=== PATIENT | male | born 1970 | race Two or more races ===

== ENCOUNTER 2017-02-08 21:34 | Inpatient (IN) | payer MEDICAID ==
[~2017-02-08] VITALS: Ht 180.3 cm; Wt 72.6 kg
[2017-02-08] MEDS ORDERED: Albuterol ud Inhalation ONE (21:43)
[2017-02-08] MEDS ORDERED: Ipratropium 0.02% Inh Soln 2.5ml UD ONE (21:43)
[2017-02-08] MEDS ORDERED: Solu-MEDROL 125mg Inj IVP ONE (21:45)
[2017-02-08] MEDS ORDERED: Ipratropium 0.02% Inh Soln 2.5ml UD HHN ONE (21:45)
[2017-02-08] MEDS ORDERED: Albuterol ud Inhalation HHN ONE (21:45)
[2017-02-08 22:14] LABS: BASOPHILS % (AUTO) 1.4 % (0.0-2.0); EOSINOPHILS % (AUTO) 2.3 % (0.0-3.0); LYMPHOCYTES % (AUTO) 36.3 % (20.0-45.0); MEAN CORPUSCULAR HEMOGLOBIN 24.4 PG (27.0-31.0); MEAN CORPUSCULAR HGB CONC 28.4 G/DL (32.0-36.0); MEAN CORPUSCULAR VOLUME 86 FL (80-99); MONOCYTES % (AUTO) 10.8 % (1.0-10.0); NEUTROPHILS % (AUTO) 49.2 % (45.0-75.0); PLATELET COUNT 249 K/UL (150-450); RED BLOOD COUNT 4.12 M/UL (4.70-6.10); RED CELL DISTRIBUTION WIDTH 19.8 % (11.6-14.8); WHITE BLOOD COUNT 5.6 K/UL (4.8-10.8)
[2017-02-08 22:28] LABS: PROTHROMBIN TIME 10.2 SEC (9.30-11.50)
[2017-02-08 22:34] LABS: APPEARANCE,URINE CLEAR; KETONES,URINE NEGATIVE (NEGATIVE); LEUKOCYTE ESTERASE ,URINE NEGATIVE (NEGATIVE); NITRITE,URINE NEGATIVE (NEGATIVE); PH,URINE 6 (4.5-8.0); PROTEIN,URINE 2+ (NEGATIVE); UROBILINOGEN,URINE NORMAL MG/DL (0.0-1.0)
[2017-02-08 22:42] LABS: ALANINE AMINOTRANSFERASE 55 U/L (12-78); ALBUMIN/GLOBULIN RATIO 0.8 (1.0-2.7); ANION GAP 8 mmol/L (5-15); ASPARTATE AMINO TRANSFERASE 46 U/L (15-37); CALCIUM 8.1 MG/DL (8.5-10.1); CARBON DIOXIDE 24 MMOL/L (21-32); CHLORIDE 111 MMOL/L (98-107); CKMB 3.4 NG/ML (0.0-3.6); CREATININE 1.5 MG/DL (0.55-1.30); GLOMERULAR FILTRATION RATE 50.4 mL/min (>60); POTASSIUM 3.9 MMOL/L (3.5-5.1); SODIUM 143 MMOL/L (136-145); TOTAL PROTEIN 6.4 G/DL (6.4-8.2)
[2017-02-08 22:43] VITALS: BP 158/108
[2017-02-08 22:45] LABS: BACTERIA,URINE FEW /HPF; RBC,URINE 0-2 /HPF (0 - 0); WBC,URINE 0-2 /HPF (0 - 0)
[2017-02-08] MEDS ORDERED: FUROSEMIDE40 MG ORAL (23:01)
[2017-02-09] VITALS (8 sets, daily range): BP systolic 120–145; BP diastolic 75–100
[2017-02-09] MEDS ORDERED: Enalaprilat 2.5mg/2ml Inj IV ONE
--- NOTE | 2017-02-09 00:01 | Emergency Room Report ---
History of Present Illness General Chief Complaint: Dyspnea/Respdistress Source: Patient, EMS Present Illness HPI This is a 46 year male with a history of chronic CHF, asthma and high blood pressure. He is staying at a motel nearby. He called 911 because he was short of breath. He said that he did not get his medication filled because the taxi never came. He was just a minute or 2 weeks ago at [facility] for the same thing. Pain 2 weeks prior to that he was at [facility]. He said he became short of breath tonight. Worse with exertion. No fever chills. Also has chest pain and chest pressure. EMS said he was wheezing so they gave him breathing treatment. Also gave him aspirin and nitroglycerin. He said he felt a bit better now. Similar symptom in the past. Allergies: Coded Allergies: No Known Allergies (Unverified , 02/08/17) Patient History Past Medical History: see triage record, old chart reviewed, HTN, CHF, asthma, HIV Past Surgical History: other Pertinent Family History: none Social History: Reports: smoking, Denies: alcohol use, drug use Immunizations: other Reviewed Nursing Documentation: PMH: Agreed, PSxH: Agreed Nursing Documentation-PMH Hx Hypertension: Yes Review of Systems Eye: Denies: eye pain, blurred vision ENT: Denies: ear pain, nose congestion, throat swelling Respiratory: Reports: shortness of breath, CONTRERAS, Denies: cough Cardiovascular: Reports: chest pain, Denies: palpitations Gastrointestinal: Denies: abdominal pain, diarrhea, nausea, vomiting Musculoskeletal: Denies: back pain, joint pain Skin: Denies: rash Neurological: Denies: headache, numbness Endocrine: Denies: increased thirst, increased urine Hematologic/Lymphatic: Denies: easy bruising All Other Systems: negative except mentioned in HPI Physical Exam Vital Signs Date Time Temp Pulse Resp B/P (MAP) Pulse Ox O2 Delivery O2 Flow Rate FiO2 02/08/17 21:30 97.3 107 18 154/106 98 02/08/17 21:35 Nasal Cannula 2.0 02/08/17 21:48 28 vitals with tachycardia, high blood pressure Sp02 EP Interpretation: abnormal General Appearance: moderate distress Head: normocephalic, atraumatic Eyes: bilateral eye PERRL, bilateral eye EOMI ENT: hearing grossly normal, normal pharynx Neck: full range of motion, supple, no meningismus Respiratory: chest non-tender, rales Cardiovascular #1: regular rate, rhythm, no murmur, tachycardia Gastrointestinal: normal bowel sounds, non tender, no mass, no organomegaly, no bruit, non-distended Musculoskeletal: back normal, normal range of motion Neurologic: alert, oriented x3 Psychiatric: mood/affect normal Skin: warm/dry Procedures Critical Care Time Critical Care Time Critical care is mandated in this patient who presented with respiratory distress secondary to CHF. Patient require my urgent intervention to attenuate the risks of metabolic collapse which may lead to cardiovascular collapse and . Critical care time is 35 minutes excluding any reportable procedure. Critical care time included evaluation, multiple reevaluation, looking at old charts, interpreting laboratory and diagnostic data, discussing case with patient and family and consultants, and charting. Medical Decision Making Diagnostic Impression: Primary Impression: CHF exacerbation Qualified Codes: I50.9 - Heart failure, unspecified Additional Impressions: ACS (acute coronary syndrome) Cocaine abuse Anemia Qualified Codes: D64.9 - Anemia, unspecified Respiratory distress Proteinuria Qualified Codes: R80.9 - Proteinuria, unspecified Renal insufficiency Cardiomyopathy Qualified Codes: I42.7 - Cardiomyopathy due to drug and external agent Asthma with exacerbation Qualified Codes: J45.901 - Unspecified asthma with (acute) exacerbation ER Course This patient presents with respiratory distress secondary to combination of CHF and asthma. This is probably secondary to smoking cocaine. He admits to it after positive drug screen. He diuresed about 2 L. He received aspirin and nitroglycerin by EMS her ready. I gave him a dose of Vasotec here. He also received them a CT been and steroid. He felt better now. Sleeping comfortably. Heart rate improved. Will admit. I discussed the case with Dr. Townsend. His troponin is in the intermediate zone. This may be secondary to early ACS versus troponin leak. Laboratory Tests Test 02/08/17 21:55 02/08/17 22:20 White Blood Count 5.6 K/UL (4.8-10.8) Red Blood Count 4.12 M/UL (4.70-6.10) L Hemoglobin 10.1 G/DL (14.2-18.0) L Hematocrit 35.4 % (42.0-52.0) L Mean Corpuscular Volume 86 FL (80-99) Mean Corpuscular Hemoglobin 24.4 PG (27.0-31.0) L Mean Corpuscular Hemoglobin Concent 28.4 G/DL (32.0-36.0) L Red Cell Distribution Width 19.8 % (11.6-14.8) H Platelet Count 249 K/UL (150-450) Mean Platelet Volume 6.0 FL (6.5-10.1) L Neutrophils (%) (Auto) 49.2 % (45.0-75.0) Lymphocytes (%) (Auto) 36.3 % (20.0-45.0) Monocytes (%) (Auto) 10.8 % (1.0-10.0) H Eosinophils (%) (Auto) 2.3 % (0.0-3.0) Basophils (%) (Auto) 1.4 % (0.0-2.0) Prothrombin Time 10.2 SEC (9.30-11.50) Prothromb Time International Ratio 1.0 (0.9-1.1) Activated Partial Thromboplast Time 25 SEC (23-33) Sodium Level 143 MMOL/L (136-145) Potassium Level 3.9 MMOL/L (3.5-5.1) Chloride Level 111 MMOL/L (98-107) H Carbon Dioxide Level 24 MMOL/L (21-32) Anion Gap 8 mmol/L (5-15) Blood Urea Nitrogen 18 mg/dL (7-18) Creatinine 1.5 MG/DL (0.55-1.30) H Estimat Glomerular Filtration Rate 50.4 mL/min (>60) Glucose Level 96 MG/DL (74-106) Calcium Level 8.1 MG/DL (8.5-10.1) L Total Bilirubin 0.4 MG/DL (0.2-1.0) Aspartate Amino Transf (AST/SGOT) 46 U/L (15-37) H Alanine Aminotransferase (ALT/SGPT) 55 U/L (12-78) Alkaline Phosphatase 98 U/L (46-116) Total Creatine Kinase 63 U/L (26-308) Creatine Kinase MB 3.4 NG/ML (0.0-3.6) Creatine Kinase MB Relative Index 5.3 Troponin I 0.141 ng/mL (0.000-0.056) Pro-B-Type Natriuretic Peptide 45233 pg/mL (0-125) H Total Protein 6.4 G/DL (6.4-8.2) Albumin 2.8 G/DL (3.4-5.0) L Globulin 3.6 g/dL Albumin/Globulin Ratio 0.8 (1.0-2.7) L Urine Color Pale yellow Urine Appearance Clear Urine pH 6 (4.5-8.0) Urine Specific [place] 1.010 (1.005-1.035) Urine Protein 2+ (NEGATIVE) H Urine Glucose (UA) Negative (NEGATIVE) Urine Ketones Negative (NEGATIVE) Urine Occult Blood Negative (NEGATIVE) Urine Nitrite Negative (NEGATIVE) Urine Bilirubin Negative (NEGATIVE) Urine Urobilinogen Normal MG/DL (0.0-1.0) Urine Leukocyte Esterase Negative (NEGATIVE) Urine RBC 0-2 /HPF (0 - 0) H Urine WBC 0-2 /HPF (0 - 0) Urine Squamous Epithelial Cells None /LPF (NONE/OCC) Urine Bacteria Few /HPF (NONE) Urine Opiates Screen Negative (NEGATIVE) Urine Barbiturates Screen Negative (NEGATIVE) Phencyclidine (PCP) Screen Negative (NEGATIVE) Urine Amphetamines Screen Negative (NEGATIVE) Urine Benzodiazepines Screen Negative (NEGATIVE) Urine Cocaine Screen Positive (NEGATIVE) H Urine Marijuana (THC) Screen Negative (NEGATIVE) Lab Results Impression labs with elevated BNP EKG Diagnostic Results Rate: tachycardiac Rhythm: NSR ST Segments: other - NSST changes Rhythm Strip Diag. Results Rhythm Strip Time: 23:59 EP Interpretation: yes Rate: 100 Rhythm: NSR, no PVC's, no ectopy Chest X-Ray Diagnostic Results Chest X-Ray Diagnostic Results : Chest X-Ray Ordered: Yes # of Views/Limited/Complete: 1 View Indication: Shortness of Breath EP Interpretation: Yes Interpretation: no consolidation, no effusion, no pneumothorax, other - CM with vasc congestion Impression: Other - CM with chf Last Vital Signs Date Time Temp Pulse Resp B/P (MAP) Pulse Ox O2 Delivery O2 Flow Rate FiO2 02/08/17 22:43 97.8 106 24 158/108 100 Nasal Cannula 2.0 02/08/17 22:07 28 Status: improved Disposition: ADMITTED INPATIENT Condition: Serious Referrals: NON PHYSICIAN (PCP) SHANTE SAHU M.D. Feb 09, 2017 00:01
[2017-02-09] MEDS ORDERED: Miralax 17gm pkt ORAL PRN (00:30)
[2017-02-09] MEDS ORDERED: Albuterol/Ipratropium 3ml neb HHN PRN (00:30)
--- NOTE | 2017-02-09 08:53 | Cardiology Progress Note ---
Assessment/Plan Assessment/Plan The patient is seen and examined, full consult note will be dictated shortly. Objective Last 24 Hour Vital Signs Date Time Temp Pulse Resp B/P (MAP) Pulse Ox O2 Delivery O2 Flow Rate FiO2 02/09/17 07:40 96.4 96 18 145/100 99 Room Air 02/09/17 07:30 98.3 98 19 137/98 98 Room Air 02/09/17 06:20 100 19 137/98 98 Room Air 02/09/17 04:48 102 21 133/93 97 Room Air 02/09/17 03:24 97 22 133/91 100 Room Air 02/09/17 01:15 98.3 106 20 126/92 100 Room Air 02/08/17 23:58 147/107 02/08/17 22:43 97.8 106 24 158/108 100 Nasal Cannula 2.0 02/08/17 22:07 114 20 100 Nasal Cannula 2.0 28 02/08/17 21:48 111 18 Nasal Cannula 2.0 28 02/08/17 21:48 111 18 100 Nasal Cannula 2.0 28 02/08/17 21:48 28 02/08/17 21:35 107 18 Nasal Cannula 2.0 02/08/17 21:30 97.3 107 18 154/106 98 Laboratory Tests Test 02/08/17 21:55 02/08/17 22:20 02/09/17 01:21 White Blood Count 5.6 K/UL (4.8-10.8) Red Blood Count 4.12 M/UL (4.70-6.10) L Hemoglobin 10.1 G/DL (14.2-18.0) L Hematocrit 35.4 % (42.0-52.0) L Mean Corpuscular Volume 86 FL (80-99) Mean Corpuscular Hemoglobin 24.4 PG (27.0-31.0) L Mean Corpuscular Hemoglobin Concent 28.4 G/DL (32.0-36.0) L Red Cell Distribution Width 19.8 % (11.6-14.8) H Platelet Count 249 K/UL (150-450) Mean Platelet Volume 6.0 FL (6.5-10.1) L Neutrophils (%) (Auto) 49.2 % (45.0-75.0) Lymphocytes (%) (Auto) 36.3 % (20.0-45.0) Monocytes (%) (Auto) 10.8 % (1.0-10.0) H Eosinophils (%) (Auto) 2.3 % (0.0-3.0) Basophils (%) (Auto) 1.4 % (0.0-2.0) Prothrombin Time 10.2 SEC (9.30-11.50) Prothromb Time International Ratio 1.0 (0.9-1.1) Activated Partial Thromboplast Time 25 SEC (23-33) Sodium Level 143 MMOL/L (136-145) Potassium Level 3.9 MMOL/L (3.5-5.1) Chloride Level 111 MMOL/L (98-107) H Carbon Dioxide Level 24 MMOL/L (21-32) Anion Gap 8 mmol/L (5-15) Blood Urea Nitrogen 18 mg/dL (7-18) Creatinine 1.5 MG/DL (0.55-1.30) H Estimat Glomerular Filtration Rate 50.4 mL/min (>60) Glucose Level 96 MG/DL (74-106) Calcium Level 8.1 MG/DL (8.5-10.1) L Total Bilirubin 0.4 MG/DL (0.2-1.0) Aspartate Amino Transf (AST/SGOT) 46 U/L (15-37) H Alanine Aminotransferase (ALT/SGPT) 55 U/L (12-78) Alkaline Phosphatase 98 U/L (46-116) Total Creatine Kinase 63 U/L (26-308) Creatine Kinase MB 3.4 NG/ML (0.0-3.6) Creatine Kinase MB Relative Index 5.3 Troponin I 0.141 ng/mL (0.000-0.056) 0.144 ng/mL (0.000-0.056) Pro-B-Type Natriuretic Peptide 79892 pg/mL (0-125) H Total Protein 6.4 G/DL (6.4-8.2) Albumin 2.8 G/DL (3.4-5.0) L Globulin 3.6 g/dL Albumin/Globulin Ratio 0.8 (1.0-2.7) L Urine Color Pale yellow Urine Appearance Clear Urine pH 6 (4.5-8.0) Urine Specific [place] 1.010 (1.005-1.035) Urine Protein 2+ (NEGATIVE) H Urine Glucose (UA) Negative (NEGATIVE) Urine Ketones Negative (NEGATIVE) Urine Occult Blood Negative (NEGATIVE) Urine Nitrite Negative (NEGATIVE) Urine Bilirubin Negative (NEGATIVE) Urine Urobilinogen Normal MG/DL (0.0-1.0) Urine Leukocyte Esterase Negative (NEGATIVE) Urine RBC 0-2 /HPF (0 - 0) H Urine WBC 0-2 /HPF (0 - 0) Urine Squamous Epithelial Cells None /LPF (NONE/OCC) Urine Bacteria Few /HPF (NONE) Urine Opiates Screen Negative (NEGATIVE) Urine Barbiturates Screen Negative (NEGATIVE) Phencyclidine (PCP) Screen Negative (NEGATIVE) Urine Amphetamines Screen Negative (NEGATIVE) Urine Benzodiazepines Screen Negative (NEGATIVE) Urine Cocaine Screen Positive (NEGATIVE) H Urine Marijuana (THC) Screen Negative (NEGATIVE) MARIA L BLANCA Feb 09, 2017 08:52
[2017-02-09] MEDS: Heparin 5000 units/ml inj SUBQ SCH ×2 (09:00→21:00)
--- NOTE | 2017-02-09 09:56 | Diagnostic Imaging Report ---
Indication: SOB Technique: One view of the chest Comparison: none Findings: Heart is enlarged. There is a small left pleural effusion. There is bilateral interstitial congestive change Impression: Cardiomegaly Mild interstitial congestion Small left pleural effusion
[2017-02-09] MEDS: Spironolactone 25mg tab ORAL SCH (10:21)
--- NOTE | 2017-02-09 11:04 | History and Physical ---
History of Present Illness General Date patient seen: Feb 09, 2017 Reason for Hospitalization: Dyspnea/Respdistress Present Illness HPI 46 year male with a history of chronic CHF, asthma and high blood pressure. He called 911 because he was short of breath. He said that he did not get his medication filled. He said he became short of breath tonight. Worse with exertion. No fever chills. Also has chest pain and chest pressure. EMS said he was wheezing so they gave him breathing treatment. Also gave him aspirin and nitroglycerin. He admits to using cocaine which was present in his urine. Allergies: Coded Allergies: No Known Allergies (Unverified , 02/08/17) Medication History Scheduled Furosemide* (Lasix*), 40 MG ORAL DAILY, (Reported) Patient History Healthcare decision maker Resuscitation status Full Code Advanced Directive on File Past Medical/Surgical History Past Medical/Surgical History: (1) History of asthma (2) Cocaine abuse Review of Systems Constitutional: Reports: no symptoms Eye: Reports: no symptoms Respiratory: Reports: no symptoms Cardiovascular: Reports: no symptoms Gastrointestinal: Reports: no symptoms Genitourinary: Reports: no symptoms Physical Exam General Appearance: WD/WN Lines, tubes and drains: peripheral HEENT: normocephalic, atraumatic Neck: non-tender, normal alignment Respiratory/Chest: chest wall non-tender, normal breath sounds Breasts: no masses Cardiovascular/Chest: normal rate Abdomen: normal bowel sounds, no organomegaly Genitourinary/Rectal: normal genital exam, normal rectal exam Last 24 Hour Vital Signs Date Time Temp Pulse Resp B/P (MAP) Pulse Ox O2 Delivery O2 Flow Rate FiO2 02/09/17 10:21 145/100 02/09/17 10:21 96 145/100 02/09/17 07:45 99 02/09/17 07:40 96.4 96 18 145/100 99 Room Air 02/09/17 07:30 98.3 98 19 137/98 98 Room Air 02/09/17 06:20 100 19 137/98 98 Room Air 02/09/17 04:48 102 21 133/93 97 Room Air 02/09/17 03:24 97 22 133/91 100 Room Air 02/09/17 01:15 98.3 106 20 126/92 100 Room Air 02/08/17 23:58 147/107 02/08/17 22:43 97.8 106 24 158/108 100 Nasal Cannula 2.0 02/08/17 22:07 114 20 100 Nasal Cannula 2.0 28 02/08/17 21:48 111 18 Nasal Cannula 2.0 28 02/08/17 21:48 111 18 100 Nasal Cannula 2.0 28 02/08/17 21:48 28 02/08/17 21:35 107 18 Nasal Cannula 2.0 02/08/17 21:30 97.3 107 18 154/106 98 Laboratory Tests Test 02/08/17 21:55 02/08/17 22:20 02/09/17 01:21 White Blood Count 5.6 K/UL (4.8-10.8) Red Blood Count 4.12 M/UL (4.70-6.10) L Hemoglobin 10.1 G/DL (14.2-18.0) L Hematocrit 35.4 % (42.0-52.0) L Mean Corpuscular Volume 86 FL (80-99) Mean Corpuscular Hemoglobin 24.4 PG (27.0-31.0) L Mean Corpuscular Hemoglobin Concent 28.4 G/DL (32.0-36.0) L Red Cell Distribution Width 19.8 % (11.6-14.8) H Platelet Count 249 K/UL (150-450) Mean Platelet Volume 6.0 FL (6.5-10.1) L Neutrophils (%) (Auto) 49.2 % (45.0-75.0) Lymphocytes (%) (Auto) 36.3 % (20.0-45.0) Monocytes (%) (Auto) 10.8 % (1.0-10.0) H Eosinophils (%) (Auto) 2.3 % (0.0-3.0) Basophils (%) (Auto) 1.4 % (0.0-2.0) Prothrombin Time 10.2 SEC (9.30-11.50) Prothromb Time International Ratio 1.0 (0.9-1.1) Activated Partial Thromboplast Time 25 SEC (23-33) Sodium Level 143 MMOL/L (136-145) Potassium Level 3.9 MMOL/L (3.5-5.1) Chloride Level 111 MMOL/L (98-107) H Carbon Dioxide Level 24 MMOL/L (21-32) Anion Gap 8 mmol/L (5-15) Blood Urea Nitrogen 18 mg/dL (7-18) Creatinine 1.5 MG/DL (0.55-1.30) H Estimat Glomerular Filtration Rate 50.4 mL/min (>60) Glucose Level 96 MG/DL (74-106) Calcium Level 8.1 MG/DL (8.5-10.1) L Total Bilirubin 0.4 MG/DL (0.2-1.0) Aspartate Amino Transf (AST/SGOT) 46 U/L (15-37) H Alanine Aminotransferase (ALT/SGPT) 55 U/L (12-78) Alkaline Phosphatase 98 U/L (46-116) Total Creatine Kinase 63 U/L (26-308) Creatine Kinase MB 3.4 NG/ML (0.0-3.6) Creatine Kinase MB Relative Index 5.3 Troponin I 0.141 ng/mL (0.000-0.056) 0.144 ng/mL (0.000-0.056) Pro-B-Type Natriuretic Peptide 19340 pg/mL (0-125) H Total Protein 6.4 G/DL (6.4-8.2) Albumin 2.8 G/DL (3.4-5.0) L Globulin 3.6 g/dL Albumin/Globulin Ratio 0.8 (1.0-2.7) L Urine Color Pale yellow Urine Appearance Clear Urine pH 6 (4.5-8.0) Urine Specific [place] 1.010 (1.005-1.035) Urine Protein 2+ (NEGATIVE) H Urine Glucose (UA) Negative (NEGATIVE) Urine Ketones Negative (NEGATIVE) Urine Occult Blood Negative (NEGATIVE) Urine Nitrite Negative (NEGATIVE) Urine Bilirubin Negative (NEGATIVE) Urine Urobilinogen Normal MG/DL (0.0-1.0) Urine Leukocyte Esterase Negative (NEGATIVE) Urine RBC 0-2 /HPF (0 - 0) H Urine WBC 0-2 /HPF (0 - 0) Urine Squamous Epithelial Cells None /LPF (NONE/OCC) Urine Bacteria Few /HPF (NONE) Urine Opiates Screen Negative (NEGATIVE) Urine Barbiturates Screen Negative (NEGATIVE) Phencyclidine (PCP) Screen Negative (NEGATIVE) Urine Amphetamines Screen Negative (NEGATIVE) Urine Benzodiazepines Screen Negative (NEGATIVE) Urine Cocaine Screen Positive (NEGATIVE) H Urine Marijuana (THC) Screen Negative (NEGATIVE) Height (Feet): 5 Height (Inches): 11.00 Weight (Pounds): 160 Medications Current Medications Medications (Trade) Dose Ordered Sig/Issa Route PRN Reason Start Time Stop Time Status Last Admin Dose Admin Acetaminophen (Tylenol) 650 mg Q4H PRN ORAL Fever 02/09/17 00:30 03/11/17 00:29 Albuterol/ Ipratropium (Albuterol/ Ipratropium) 3 ml Q4H PRN HHN Shortness of Breath 02/09/17 00:30 02/14/17 00:29 Carvedilol (Coreg) 3.125 mg EVERY 12 HOURS ORAL 02/09/17 10:00 03/11/17 09:59 02/09/17 10:21 Dextrose (Dextrose 50%) STAT PRN IV Hypoglycemia 02/09/17 00:30 03/11/17 00:29 Furosemide (Lasix) 40 mg EVERY 8 HOURS IV 02/09/17 06:00 03/11/17 05:59 02/09/17 06:02 Heparin Sodium (Porcine) (Heparin 5000 units/ml) 5,000 units EVERY 12 HOURS SUBQ 02/09/17 09:00 03/11/17 08:59 Isosorbide Dinitrate (Isordil) 10 mg QID ORAL 02/09/17 10:00 03/11/17 09:59 02/09/17 10:21 Ondansetron HCl (Zofran) 4 mg Q6H PRN IVP Nausea & Vomiting 02/09/17 00:30 03/11/17 00:29 Polyethylene Glycol (Miralax) 17 gm DAILYPRN PRN ORAL Constipation 02/09/17 00:30 03/11/17 00:29 Spironolactone (Aldactone) 25 mg DAILY ORAL 02/09/17 10:00 03/11/17 09:59 02/09/17 10:21 Temazepam (Restoril) 15 mg HSPRN PRN ORAL Insomnia 02/09/17 00:30 02/16/17 00:29 Assessment/Plan Problem List: (1) ACS (acute coronary syndrome) ICD Codes: I24.9 - Acute ischemic heart disease, unspecified SNOMED: 465220938 (2) Asthma with exacerbation ICD Codes: J45.901 - Unspecified asthma with (acute) exacerbation SNOMED: 547491301 Qualifiers: Qualified Codes: J45.901 - Unspecified asthma with (acute) exacerbation (3) Cardiomyopathy ICD Codes: I42.9 - Cardiomyopathy, unspecified SNOMED: 51844523, [id number] Qualifiers: Qualified Codes: I42.7 - Cardiomyopathy due to drug and external agent (4) Cocaine abuse ICD Codes: F14.10 - Cocaine abuse, uncomplicated SNOMED: 43881812 Assessment/Plan serial troponin echo cardiology evaluation social servCLARISA Bautista Feb 09, 2017 11:04
--- NOTE | 2017-02-09 13:22 | Cardiology Report ---
APPROVED REPORT EXAM: Two-dimensional and M-mode echocardiogram with Doppler and color Doppler. INDICATION Left ventricular function M-Mode DIMENSIONS IVSd1.2 (0.7-1.1cm)Left Atrium (MM)4.6 (1.6-4.0cm) LVDd5.9 (3.5-5.6cm)Aortic Root3.6 (2.0-3.7cm) PWd1.8 (0.7-1.1cm)Aortic Cusp Exc.2.2 (1.5-2.0cm) LVDs5.1 (2.5-4.0cm) PWs2.2 cm Mild left ventricular enlargement. Global LV hypokinesis. Left ventricular ejection fraction estimated to be 20-25 %. Increased E point-interventricular septal separation c/w left ventricular dysfunction. Mild left ventricular hypertrophy. Small posterior pericardial effusion. Mild bi-atrial enlargement. Mild mild ventricular enlargement. Mild focal aortic valve sclerosis with adequate cusp excursion. Mildly thickened mitral valve leaflets with normal excursion. Mild mitral annulus and aortic root calcification. Pulmonic valve not well visualized. Normal tricuspid valve structure. IVC at normal size with physiologic collapse. A color flow and spectral Doppler study was performed and revealed: No aortic regurgitation. Mild mitral regurgitation. Mitral inflow indicates restrictive pattern, implying severely elevated left atrial pressure (Grade III). Moderate tricuspid regurgitation. Tricuspid systolic velocities suggests peak right ventricular systolic pressure of 76 mmHg, consistent with severe pulmonary hypertension. No pulmonic regurgitation present.
[2017-02-09] MEDS: Digoxin 0.125mg tab ORAL SCH (18:10)
[2017-02-09] MEDS ORDERED: Flu Vaccine Quadrivalent 0.5ml IM ONE (21:00)
[2017-02-10] VITALS: BP 119/75
[2017-02-10 04:02] VITALS: BP 124/86
--- NOTE | 2017-02-10 05:16 | Consultation ---
DATE OF CONSULTATION: 02/09/2017 CARDIOLOGY CONSULTATION REFERRING PHYSICIAN: Rico Townesnd M.D. REASON FOR CONSULTATION: Management of acute heart failure. HISTORY OF PRESENT ILLNESS: The patient is a very unfortunate 46-year-old gentleman, who called 911 as he became short of breath. Apparently, he has history of chronic congestive heart failure and he ran out of medication as he did not fill his medication following his recent hospitalization in [facility]. He has had decompensated congestive heart failure in the past month requiring to hospitalize at [facility] followed by [facility] and this time he presents to [facility] for the same reason. Restates that he has dyspnea on exertion with minimal activities associated with the chest pain and wheezing. 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 At the time of arrival to the hospital, blood pressure was 154/106 mmHg and his heart rate was 107. He was admitted to telemetry for further evaluation and management. I was called by Dr. Townsend to evaluate and assist this patient in Cardiology consultation. Initial evaluation in the emergency department revealed presence of cocaine in the urine. A 12-lead electrocardiogram was significant for sinus rhythm, presence of LVH, left atrial enlargement, and repolarization abnormalities associated with LVH. His QT-interval was also elevated. He also had right atrial enlargement. There was no clear-cut evidence of ischemia. PAST MEDICAL HISTORY: 1. History of chronic systolic congestive heart failure. 2. History of asthma. 3. History of HIV disease. 4. History of hypertension. PAST SURGICAL HISTORY: None. MEDICATIONS: Lasix 40 mg daily. ALLERGIES: No known drug allergies. SOCIAL HISTORY: Denies any alcohol or tobacco. He has positive cocaine in his urine, as a cocaine user. FAMILY HISTORY: No premature coronary artery disease or arrhythmogenic in the first-degree relatives. REVIEW OF SYSTEMS: A 12-system review done essentially negative except what mentioned in the history of present illness. PHYSICAL EXAMINATION: GENERAL: The patient is a very unfortunate 46-year-old gentleman, in no apparent respiratory distress. Alert and oriented x4. VITAL SIGNS: Blood pressure was 150/106, respirations of 18, pulse 107, temperature 97.3 degrees Fahrenheit, and O2 saturation 98% on room air. HEENT: Atraumatic and normocephalic. Anicteric. Pupils are equal, round, and reactive to light and accommodation. Extraocular muscles intact. NECK: JVP elevated about 15 cm. No carotid bruits. Carotid upstrokes 2+ bilaterally. CARDIOVASCULAR: Normal S1 and S2. A 2/6 mid systolic murmur at left sternal border. PMI is at fourth intercostal space in the midclavicular line. There is presence of a summation gallop, S3 and S4 LUNGS: Diminished breath sounds in both lungs. ABDOMEN: Soft, nontender, and nondistended. No hepatosplenomegaly. Positive bowel sounds. EXTREMITIES: No evidence of edema, clubbing, or cyanosis. LABORATORY AND DIAGNOSTIC DATA: Chest x-ray showed cardiomegaly with mild interstitial edema and small left pleural effusion. Laboratory findings, WBC 5.6, hemoglobin 10.1, hematocrit of 35.4, and platelet count is 249,000. Sodium 143, potassium was 3.9, chloride 111, bicarbonate is 24, BUN of 18, creatinine 1.5, and glucose is 96. Calcium is 8.1. Troponin I x2 positive. ProBNP was 15,853. INR is 1.0. Toxicology showed positive cocaine in the urine. A 12-lead electrocardiogram shows sinus rhythm at a rate of 98 with left axis deviation, prolonged QT-interval, biatrial enlargement, LVH with repolarization abnormalities in lead V6, and nonspecific ST-T changes. ASSESSMENT AND PLAN: The patient is a very unfortunate 46-year-old gentleman seen in Cardiology consultation at request of Dr. Townsend. 1. Acute on chronic systolic and diastolic congestive heart failure, the patient requires to be on guideline directed medical therapy including beta-blockers, digoxin, Aldactone, REBECCA inhibitors as well as diuretic therapy. The patient moreover will benefit from warfarin therapy as his echocardiography report just came out to show left ventricular ejection fraction about 20% to 25%. 2. Polysubstance abuse. 3. Noncompliance with medication. I would like to thank, Dr. Townsend, for allowing me to participate in the care of this patient. Abdelrahman Hatch M.D. DR: JEREMIE JOB#: [id number] CC:
[2017-02-10 07:40] LABS: MEAN CORPUSCULAR HEMOGLOBIN 26.1 PG (27.0-31.0); MEAN CORPUSCULAR HGB CONC 31.7 G/DL (32.0-36.0); MEAN CORPUSCULAR VOLUME 82 FL (80-99); MEAN PLATELET VOLUME 6.9 FL (6.5-10.1); PLATELET COUNT 283 K/UL (150-450); RED BLOOD COUNT 4.69 M/UL (4.70-6.10); RED CELL DISTRIBUTION WIDTH 19.5 % (11.6-14.8); WHITE BLOOD COUNT 7.1 K/UL (4.8-10.8)
[2017-02-10 07:48] LABS: ANION GAP 5 mmol/L (5-15); CALCIUM 9.3 MG/DL (8.5-10.1); CARBON DIOXIDE 33 MMOL/L (21-32); CHLORIDE 101 MMOL/L (98-107); CREATININE 1.5 MG/DL (0.55-1.30); GLOMERULAR FILTRATION RATE 50.4 mL/min (>60); PHOSPHORUS 3.9 MG/DL (2.5-4.9); SODIUM 139 MMOL/L (136-145)
[2017-02-10 08:00] VITALS: BP 116/82
[2017-02-10 08:21] LABS: PROTHROMBIN TIME 10.4 SEC (9.30-11.50)
[2017-02-10 08:23] LABS: PATH BLOOD SMEAR/OMC SENT TO PATHOLOGIST
[2017-02-10 08:27] LABS: ALANINE AMINOTRANSFERASE 55 U/L (12-78); ALBUMIN/GLOBULIN RATIO 0.8 (1.0-2.7); ANION GAP 6 mmol/L (5-15); ASPARTATE AMINO TRANSFERASE 33 U/L (15-37); CALCIUM 9.2 MG/DL (8.5-10.1); CARBON DIOXIDE 33 MMOL/L (21-32); CHLORIDE 100 MMOL/L (98-107); CREATININE 1.5 MG/DL (0.55-1.30); GLOMERULAR FILTRATION RATE 50.4 mL/min (>60); LACTATE DEHYDROGENASE 233 U/L (81-234); POTASSIUM 4.1 MMOL/L (3.5-5.1); SODIUM 139 MMOL/L (136-145); TOTAL PROTEIN 7.1 G/DL (6.4-8.2)
[2017-02-10] MEDS: Digoxin 0.125mg tab ORAL SCH (08:53)
[2017-02-10 08:56] LABS: FOLIC ACID > 20.0 NG/ML (3.1-17.5)
[2017-02-10] MEDS: Spironolactone 25mg tab ORAL SCH (08:57)
[2017-02-10] MEDS: Heparin 5000 units/ml inj SUBQ SCH ×2 (08:58→21:54)
[2017-02-10 09:08] LABS: ERYTHROCYTE SEDIMENTATION RATE 15 MM/HR (0-15)
[2017-02-10 09:16] LABS: IRON 30 ug/dL (50-175); TOTAL IRON BINDING CAPACITY 317 ug/dL (250-450)
[2017-02-10 09:37] LABS: BAND NEUTROPHILS % (MANUAL) 1 % (0-8); EOSINOPHILS % (MANUAL) 1 % (0-3); LYMPHOCYTES % (MANUAL) 19 % (20-45); NEUTROPHILS % (MANUAL) 75 % (45-75); TOTAL CELLS COUNTED 100
[2017-02-10 09:38] LABS: BASOPHILS % (MANUAL) 0 % (0-2); PLATELET ESTIMATE ADEQUATE; PLATELET MORPHOLOGY NORMAL
[2017-02-10 09:40] LABS: ANISOCYTOSIS 3+
[2017-02-10 09:41] LABS: HYPOCHROMASIA 3+; POIKILOCYTOSIS 3+; STOMATOCYTES 1+
[2017-02-10 09:42] LABS: MICROCYTES 3+; TARGET CELLS 1+
[2017-02-10 09:44] LABS: MACROCYTES 1+
--- NOTE | 2017-02-10 10:24 | Diagnostic Imaging Report ---
Indication: DYSPNEA Technique: One view of the chest Comparison: none Findings: There has been interim improvement of previously demonstrated interstitial congestion, now resolved. Heart remains enlarged. Pleural spaces are clear, previously demonstrated left pleural effusion no longer evident Impression: Improved interstitial edema and left pleural fluid, over 2 days
[2017-02-10 12:00] VITALS: BP 123/68
--- NOTE | 2017-02-10 13:45 | Pulmonology Progress Note ---
Assessment/Plan Assessment/Plan ASSESSMENT atypical CP Elevated troponin CHF exacerbation , systolic and diastolic Cardiomyopathy ( EF 20-25%) Asthma cocaine abuse JUAN MIGUEL vs CRI Severe pulmonary HTN Anemia proteinuria hypo Mg PLAN OF CARE Tele serial troponin 2 elevated minimally, no trend up, flat Atypical pattern per cardio cardio follows ECG with ST/ SR,no acute ischemic changes ASA, Nitro/ on isordil Diuresis with IV Lasix, monitor I/O, renal parameters, lytes ECHO with EF 20-25% and RVSP of 78 c/ severe pulmonary HTN medical management of CHF with diuretic, BB won't recommend to add REBECCA at this time due to elevated creat - per cardio final discretion ? dc BB due to cocaine abuse ( tox screen positive ) per cardio O2 titrate to keep sat above 92% HHN prn Fup CXR better pain management DVT prophylaxis service counselor on abstinence from street drugs replace Mg case discussed and evaluated by supervising physician Subjective Allergies: Coded Allergies: No Known Allergies (Unverified , 02/08/17) Subjective no chest pain, occasional SOB on IV diuretic Mg-1.3 24 hr negative balance -4300 cc Objective Last 24 Hour Vital Signs Date Time Temp Pulse Resp B/P (MAP) Pulse Ox O2 Delivery O2 Flow Rate FiO2 02/10/17 12:00 91 02/10/17 08:55 116/82 02/10/17 08:53 97 02/10/17 08:52 97 116/82 02/10/17 08:00 83 02/10/17 07:55 85 20 Room Air 02/10/17 04:02 97.0 98 20 124/86 97 Room Air 2.0 28 02/10/17 03:50 81 02/10/17 00:00 99.1 107 20 119/75 95 Room Air 2.0 28 02/10/17 00:00 101 02/09/17 21:00 128/80 02/09/17 21:00 102 128/80 02/09/17 21:00 99 02/09/17 20:06 99.1 102 20 122/78 98 Room Air 2.0 28 02/09/17 19:50 105 20 Room Air 02/09/17 18:10 100 02/09/17 17:39 120/75 02/09/17 16:00 104 02/09/17 16:00 97.0 100 17 120/75 97 Room Air General Appearance: no acute distress HEENT: normocephalic, atraumatic, anicteric, mucous membranes moist, PERRL Respiratory/Chest: chest wall non-tender, lungs clear, normal breath sounds, no respiratory distress Cardiovascular: normal peripheral pulses, normal rate - SR on tele , murmur systolic - 2/6 midsystolic murmur Abdomen: normal bowel sounds, soft, non tender, non distended Extremities: no edema Neurologic/Psychiatric: no motor/sensory deficits, alert, oriented x 3, responsive Musculoskeletal: normal muscle bulk Laboratory Tests 02/10/17 06:40: White Blood Count 7.1, Red Blood Count 4.69L, Hemoglobin 12.3L, Hematocrit 38.6L , Mean Corpuscular Volume 82, Mean Corpuscular Hemoglobin 26.1L, Mean Corpuscular Hemoglobin Concent 31.7L, Red Cell Distribution Width 19.5H, Platelet Count 283, Mean Platelet Volume 6.9, Neutrophils (%) (Auto) , Lymphocytes (%) (Auto) , Monocytes (%) (Auto) , Eosinophils (%) (Auto) , Basophils (%) (Auto) , Differential Total Cells Counted 100, Neutrophils % ( Manual) 75, Lymphocytes % (Manual) 19L, Monocytes % (Manual) 4, Eosinophils % ( Manual) 1, Basophils % (Manual) 0, Band Neutrophils 1, Platelet Estimate Adequate, Platelet Morphology Normal, Hypochromasia 3+, Poikilocytosis 3+, Anisocytosis 3+, Microcytosis 3+, Macrocytosis 1+, Target Cells 1+, Stomatocytes 1+, Erythrocyte Sedimentation Rate 15, Reticulocyte Count 2.0, Prothrombin Time 10.4, Prothromb Time International Ratio 1.0, Activated Partial Thromboplast Time 24, Sodium Level 139, Potassium Level 4.1, Chloride Level 100, Carbon Dioxide Level 33H, Anion Gap 6, Blood Urea Nitrogen 29H, Creatinine 1.5H, Estimat Glomerular Filtration Rate 50.4, Glucose Level 101, Calcium Level 9.2, Phosphorus Level 3.9, Magnesium Level 1.3L, Iron Level 30L, Total Iron Binding Capacity 317, Percent Iron Saturation 9L, Unsaturated Iron Binding 287, Total Bilirubin 0.5, Aspartate Amino Transf (AST/SGOT) 33, Alanine Aminotransferase (ALT/SGPT) 55, Alkaline Phosphatase 92, Lactate Dehydrogenase 233, Troponin I 0.153H, Total Protein 7.1, Albumin 3.1L, Globulin 4.0, Albumin/ Globulin Ratio 0.8L, Vitamin B12 Level 440, Folate > 20.0H Current Medications Medications (Trade) Dose Ordered Sig/Issa Route PRN Reason Start Time Stop Time Status Last Admin Dose Admin Acetaminophen (Tylenol) 650 mg Q4H PRN ORAL Fever 02/09/17 00:30 03/11/17 00:29 Albuterol/ Ipratropium (Albuterol/ Ipratropium) 3 ml Q4H PRN HHN Shortness of Breath 02/09/17 00:30 02/14/17 00:29 Carvedilol (Coreg) 3.125 mg EVERY 12 HOURS ORAL 02/09/17 10:00 03/11/17 09:59 02/10/17 08:52 Dextrose (Dextrose 50%) STAT PRN IV Hypoglycemia 02/09/17 00:30 03/11/17 00:29 Digoxin (Lanoxin) 0.125 mg DAILY ORAL 02/09/17 18:00 03/11/17 17:59 02/10/17 08:53 Furosemide (Lasix) 40 mg EVERY 8 HOURS IV 02/09/17 06:00 03/11/17 05:59 02/10/17 05:58 Heparin Sodium (Porcine) (Heparin 5000 units/ml) 5,000 units EVERY 12 HOURS SUBQ 02/09/17 09:00 03/11/17 08:59 Isosorbide Dinitrate (Isordil) 10 mg QID ORAL 02/09/17 10:00 03/11/17 09:59 02/10/17 08:55 Ondansetron HCl (Zofran) 4 mg Q6H PRN IVP Nausea & Vomiting 02/09/17 00:30 03/11/17 00:29 Polyethylene Glycol (Miralax) 17 gm DAILYPRN PRN ORAL Constipation 02/09/17 00:30 03/11/17 00:29 Spironolactone (Aldactone) 25 mg DAILY ORAL 02/09/17 10:00 03/11/17 09:59 02/10/17 08:57 Temazepam (Restoril) 15 mg HSPRN PRN ORAL Insomnia 02/09/17 00:30 02/16/17 00:29 Y[facility] ([facility]),Deanne GUTIERRES Feb 10, 2017 13:45
[2017-02-10 16:40] VITALS: BP 109/76
--- NOTE | 2017-02-10 18:36 | Cardiology Progress Note ---
Assessment/Plan Status Narrative Assessment/Plan 1. Acute on chronic systolic and diastolic congestive heart failure, will optimize heart failure regimen. left ventricular ejection fraction is about 30%. 2. Severe pulmonary HTN 3. Small pericardial effusion is s/o right heart failure as well. 4. Polysubstance abuse. 5. Noncompliance with medication. Subjective Cardiovascular: Reports: no symptoms Respiratory: Reports: no symptoms Gastrointestinal/Abdominal: Reports: no symptoms Genitourinary: Reports: no symptoms Subjective Sinus tach at 102. Objective Last 24 Hour Vital Signs Date Time Temp Pulse Resp B/P (MAP) Pulse Ox O2 Delivery O2 Flow Rate FiO2 02/10/17 17:35 109/76 02/10/17 16:40 97.7 73 19 109/76 Room Air 02/10/17 16:00 77 02/10/17 13:47 123/68 02/10/17 12:00 97.1 83 18 123/68 100 Room Air 02/10/17 12:00 91 02/10/17 08:55 116/82 02/10/17 08:53 97 02/10/17 08:52 97 116/82 02/10/17 08:00 97.0 97 18 116/82 90 Room Air 97 02/10/17 08:00 83 02/10/17 07:55 85 20 Room Air 02/10/17 04:02 97.0 98 20 124/86 97 Room Air 2.0 28 02/10/17 03:50 81 02/10/17 00:00 99.1 107 20 119/75 95 Room Air 2.0 28 02/10/17 00:00 101 02/09/17 21:00 128/80 02/09/17 21:00 102 128/80 02/09/17 21:00 99 02/09/17 20:06 99.1 102 20 122/78 98 Room Air 2.0 28 02/09/17 19:50 105 20 Room Air 2D Echo: 4C DCM, LVEF 30%, Grade II LVDD, Mild MR, RVSP 76 , Mild LVH, Small Bhumika Ef Laboratory Tests Test 02/10/17 06:40 White Blood Count 7.1 K/UL (4.8-10.8) Red Blood Count 4.69 M/UL (4.70-6.10) L Hemoglobin 12.3 G/DL (14.2-18.0) L Hematocrit 38.6 % (42.0-52.0) L Mean Corpuscular Volume 82 FL (80-99) Mean Corpuscular Hemoglobin 26.1 PG (27.0-31.0) L Mean Corpuscular Hemoglobin Concent 31.7 G/DL (32.0-36.0) L Red Cell Distribution Width 19.5 % (11.6-14.8) H Platelet Count 283 K/UL (150-450) Mean Platelet Volume 6.9 FL (6.5-10.1) Neutrophils (%) (Auto) % (45.0-75.0) Lymphocytes (%) (Auto) % (20.0-45.0) Monocytes (%) (Auto) % (1.0-10.0) Eosinophils (%) (Auto) % (0.0-3.0) Basophils (%) (Auto) % (0.0-2.0) Differential Total Cells Counted 100 Neutrophils % (Manual) 75 % (45-75) Lymphocytes % (Manual) 19 % (20-45) L Monocytes % (Manual) 4 % (1-10) Eosinophils % (Manual) 1 % (0-3) Basophils % (Manual) 0 % (0-2) Band Neutrophils 1 % (0-8) Platelet Estimate Adequate Platelet Morphology Normal Hypochromasia 3+ Poikilocytosis 3+ Anisocytosis 3+ Microcytosis 3+ Macrocytosis 1+ Target Cells 1+ Stomatocytes 1+ Erythrocyte Sedimentation Rate 15 MM/HR (0-15) Reticulocyte Count 2.0 % (0.0-2.0) Prothrombin Time 10.4 SEC (9.30-11.50) Prothromb Time International Ratio 1.0 (0.9-1.1) Activated Partial Thromboplast Time 24 SEC (23-33) Sodium Level 139 MMOL/L (136-145) Potassium Level 4.1 MMOL/L (3.5-5.1) Chloride Level 100 MMOL/L (98-107) Carbon Dioxide Level 33 MMOL/L (21-32) H Anion Gap 6 mmol/L (5-15) Blood Urea Nitrogen 29 mg/dL (7-18) H Creatinine 1.5 MG/DL (0.55-1.30) H Estimat Glomerular Filtration Rate 50.4 mL/min (>60) Glucose Level 101 MG/DL (74-106) Calcium Level 9.2 MG/DL (8.5-10.1) Phosphorus Level 3.9 MG/DL (2.5-4.9) Magnesium Level 1.3 MG/DL (1.8-2.4) L Iron Level 30 ug/dL (50-175) L Total Iron Binding Capacity 317 ug/dL (250-450) Percent Iron Saturation 9 % (15-50) L Unsaturated Iron Binding 287 ug/dL (112-346) Total Bilirubin 0.5 MG/DL (0.2-1.0) Aspartate Amino Transf (AST/SGOT) 33 U/L (15-37) Alanine Aminotransferase (ALT/SGPT) 55 U/L (12-78) Alkaline Phosphatase 92 U/L (46-116) Lactate Dehydrogenase 233 U/L (81-234) Troponin I 0.153 ng/mL (0.000-0.056) Total Protein 7.1 G/DL (6.4-8.2) Albumin 3.1 G/DL (3.4-5.0) L Globulin 4.0 g/dL Albumin/Globulin Ratio 0.8 (1.0-2.7) L Vitamin B12 Level 440 PG/ML (193-986) Folate > 20.0 NG/ML (3.1-17.5) H Objective HEENT: Atraumatic and normocephalic. Anicteric. Pupils are equal, round, and reactive to light and accommodation. Extraocular muscles intact. NECK: JVP elevated about 15 cm. No carotid bruits. Carotid upstrokes 2+ bilaterally. CARDIOVASCULAR: Normal S1 and S2. Tachcyardic, A 2/6 mid systolic murmur at left sternal border. PMI is at fourth intercostal space in the midclavicular line. There is presence of a summation gallop, S3 and S4 LUNGS: Diminished breath sounds in both lungs. ABDOMEN: Soft, nontender, and nondistended. No hepatosplenomegaly. Positive bowel sounds. EXTREMITIES: No evidence of edema, clubbing, or cyanosis. MARIA L BLANCA Feb 10, 2017 18:36
[2017-02-10 20:22] VITALS: BP 107/64
[2017-02-11 00:54] VITALS: BP 131/64
[2017-02-11 04:33] VITALS: BP 126/72
[2017-02-11 07:29] LABS: BASOPHILS % (AUTO) 0.7 % (0.0-2.0); EOSINOPHILS % (AUTO) 2.6 % (0.0-3.0); LYMPHOCYTES % (AUTO) 25.4 % (20.0-45.0); MEAN CORPUSCULAR HGB CONC 31.8 G/DL (32.0-36.0); MEAN CORPUSCULAR VOLUME 82 FL (80-99); MEAN PLATELET VOLUME 7.3 FL (6.5-10.1); MONOCYTES % (AUTO) 9.4 % (1.0-10.0); NEUTROPHILS % (AUTO) 61.9 % (45.0-75.0); PLATELET COUNT 312 K/UL (150-450); RED BLOOD COUNT 5.07 M/UL (4.70-6.10); WHITE BLOOD COUNT 6.5 K/UL (4.8-10.8)
[2017-02-11 07:36] LABS: ANION GAP 6 mmol/L (5-15); CARBON DIOXIDE 30 MMOL/L (21-32); CHLORIDE 100 MMOL/L (98-107); CREATININE 1.2 MG/DL (0.55-1.30); GLOMERULAR FILTRATION RATE > 60 mL/min (>60); MAGNESIUM 1.8 MG/DL (1.8-2.4); POTASSIUM 4.3 MMOL/L (3.5-5.1); SODIUM 136 MMOL/L (136-145)
[2017-02-11 07:53] LABS: CALCIUM 9.1 MG/DL (8.5-10.1)
[2017-02-11 08:00] VITALS: BP 137/99
[2017-02-11] MEDS: Heparin 5000 units/ml inj SUBQ SCH ×2 (09:00→21:00)
[2017-02-11] MEDS: Digoxin 0.125mg tab ORAL SCH (09:07)
[2017-02-11] MEDS: Spironolactone 25mg tab ORAL SCH (09:08)
[2017-02-11] MEDS ORDERED: Tubing IV Secondary IV ONE (10:33)
[2017-02-11] MEDS ORDERED: NS 275ml ONE (10:33)
--- NOTE | 2017-02-11 11:41 | Pulmonology Progress Note ---
Assessment/Plan Assessment/Plan ASSESSMENT atypical CP Elevated troponin CHF exacerbation , systolic and diastolic Cardiomyopathy ( EF 20-25%) Asthma cocaine abuse JUAN MIGUEL -resolving Severe pulmonary HTN Anemia proteinuria hypo Mg-resolved PLAN OF CARE Tele serial troponin 2 elevated minimally, no trend up, flat Atypical pattern per cardio cardio follows ECG with ST/ SR,no acute ischemic changes ASA, Nitro/ on Isordil Diuresis with IV Lasix, monitor I/O, renal parameters, lytes , creat down to 1.2 ECHO with EF 20-25% and RVSP of 78 c/ w severe pulmonary HTN medical management of CHF with diuretic, BB won't recommend to add REBECCA at this time due to elevated creat - per cardio final discretion ? dc BB due to cocaine abuse ( tox screen positive ), again per cardio discretion ? AICD placement - per cardio O2 titrate to keep sat above 92% HHN prn Fup CXR better pain management DVT prophylaxis breastfeeding peer counselor on abstinence from street drugs Mg stable after replacement case discussed and evaluated by supervising physician Subjective Allergies: Coded Allergies: No Known Allergies (Unverified , 02/08/17) Subjective no chest pain, occasional SOB on IV diuretic Objective Last 24 Hour Vital Signs Date Time Temp Pulse Resp B/P (MAP) Pulse Ox O2 Delivery O2 Flow Rate FiO2 02/11/17 09:08 137/99 02/11/17 09:07 82 02/11/17 09:07 82 137/99 02/11/17 08:00 97.4 82 20 137/99 100 Room Air 02/11/17 08:00 105 02/11/17 07:24 81 18 Room Air 21 02/11/17 06:00 89 02/11/17 04:33 98.4 90 18 126/72 92 Room Air 02/11/17 00:54 97.7 92 18 131/64 99 Room Air 02/11/17 00:00 86 02/10/17 21:50 84 107/64 02/10/17 21:00 107/64 02/10/17 20:22 96.4 84 18 107/64 94 Room Air 02/10/17 19:30 82 20 Room Air 21 02/10/17 18:37 90 02/10/17 17:35 109/76 02/10/17 16:40 97.7 73 19 109/76 Room Air 02/10/17 13:47 123/68 02/10/17 12:00 97.1 83 18 123/68 100 Room Air 02/10/17 12:00 91 Objective General Appearance: no acute distress HEENT: normocephalic, atraumatic, anicteric, mucous membranes moist, PERRL Respiratory/Chest: chest wall non-tender, lungs clear, normal breath sounds, no respiratory distress Cardiovascular: normal peripheral pulses, normal rate - SR on tele, 2/6 mid systolic murmur Abdomen: normal bowel sounds, soft, non tender, non distended Extremities: no edema Neurologic/Psychiatric: no motor/sensory deficits, alert, oriented x 3, responsive Musculoskeletal: normal muscle bulk Microbiology Date/Time Source Procedure Growth Status 02/09/17 11:30 Nasal Nares MRSA Culture - Final NO METHICILLIN RESISTANT STAPH AUREUS... Complete 02/09/17 11:30 Rectum VRE Culture - Final NO VANCOMYCIN RESISTANT ENTEROCOCCUS ... Complete Laboratory Tests 02/11/17 05:00: White Blood Count 6.5, Red Blood Count 5.07, Hemoglobin 13.2L, Hematocrit 41.4L , Mean Corpuscular Volume 82, Mean Corpuscular Hemoglobin 26.0L, Mean Corpuscular Hemoglobin Concent 31.8L, Red Cell Distribution Width 19.0H, Platelet Count 312, Mean Platelet Volume 7.3, Neutrophils (%) (Auto) 61.9, Lymphocytes (%) (Auto) 25.4, Monocytes (%) (Auto) 9.4, Eosinophils (%) (Auto) 2.6, Basophils (%) (Auto) 0.7, Sodium Level 136, Potassium Level 4.3, Chloride Level 100, Carbon Dioxide Level 30, Anion Gap 6, Blood Urea Nitrogen 36H, Creatinine 1.2, Estimat Glomerular Filtration Rate > 60, Glucose Level 88, Calcium Level 9.1, Magnesium Level 1.8 Current Medications Medications (Trade) Dose Ordered Sig/Issa Route PRN Reason Start Time Stop Time Status Last Admin Dose Admin Acetaminophen (Tylenol) 650 mg Q4H PRN ORAL Fever 02/09/17 00:30 03/11/17 00:29 Albuterol/ Ipratropium (Albuterol/ Ipratropium) 3 ml Q4H PRN HHN Shortness of Breath 02/09/17 00:30 02/14/17 00:29 Carvedilol (Coreg) 3.125 mg EVERY 12 HOURS ORAL 02/09/17 10:00 03/11/17 09:59 02/11/17 09:07 Dextrose (Dextrose 50%) STAT PRN IV Hypoglycemia 02/09/17 00:30 03/11/17 00:29 Digoxin (Lanoxin) 0.125 mg DAILY ORAL 02/09/17 18:00 03/11/17 17:59 02/11/17 09:07 Furosemide (Lasix) 40 mg EVERY 8 HOURS IV 02/09/17 06:00 03/11/17 05:59 02/11/17 06:34 Heparin Sodium (Porcine) (Heparin 5000 units/ml) 5,000 units EVERY 12 HOURS SUBQ 02/09/17 09:00 03/11/17 08:59 02/10/17 21:54 Isosorbide Dinitrate (Isordil) 10 mg QID ORAL 02/09/17 10:00 03/11/17 09:59 02/11/17 09:08 Ondansetron HCl (Zofran) 4 mg Q6H PRN IVP Nausea & Vomiting 02/09/17 00:30 03/11/17 00:29 Polyethylene Glycol (Miralax) 17 gm DAILYPRN PRN ORAL Constipation 02/09/17 00:30 03/11/17 00:29 02/10/17 15:01 Spironolactone (Aldactone) 25 mg DAILY ORAL 02/09/17 10:00 03/11/17 09:59 02/11/17 09:08 Temazepam (Restoril) 15 mg HSPRN PRN ORAL Insomnia 02/09/17 00:30 02/16/17 00:29 Deanne Honeycutt NP ([facility]) Feb 11, 2017 11:41
[2017-02-11 12:44] VITALS: BP 108/75
[2017-02-11 16:34] VITALS: BP 128/77
[2017-02-11 20:16] VITALS: BP 111/73
[2017-02-12 00:29] VITALS: BP 121/94
[2017-02-12 04:24] VITALS: BP 109/68
[2017-02-12 08:34] LABS: BASOPHILS % (AUTO) 0.8 % (0.0-2.0); EOSINOPHILS % (AUTO) 2.3 % (0.0-3.0); LYMPHOCYTES % (AUTO) 25.8 % (20.0-45.0); MEAN CORPUSCULAR HEMOGLOBIN 25.7 PG (27.0-31.0); MEAN CORPUSCULAR HGB CONC 31.3 G/DL (32.0-36.0); MEAN CORPUSCULAR VOLUME 82 FL (80-99); MEAN PLATELET VOLUME 7.9 FL (6.5-10.1); NEUTROPHILS % (AUTO) 60.1 % (45.0-75.0); PLATELET COUNT 301 K/UL (150-450); RED BLOOD COUNT 5.43 M/UL (4.70-6.10); RED CELL DISTRIBUTION WIDTH 18.8 % (11.6-14.8); WHITE BLOOD COUNT 5.3 K/UL (4.8-10.8)
[2017-02-12] MEDS: Spironolactone 25mg tab ORAL SCH (08:44)
[2017-02-12] MEDS: Heparin 5000 units/ml inj SUBQ SCH ×2 (08:45→22:13)
[2017-02-12 08:52] VITALS: BP 113/87
[2017-02-12] MEDS: Digoxin 0.125mg tab ORAL SCH (08:53)
[2017-02-12 08:58] LABS: ANION GAP 6 mmol/L (5-15); CALCIUM 9.5 MG/DL (8.5-10.1); CARBON DIOXIDE 33 MMOL/L (21-32); CHLORIDE 98 MMOL/L (98-107); CREATININE 1.4 MG/DL (0.55-1.30); GLOMERULAR FILTRATION RATE 54.6 mL/min (>60); SODIUM 137 MMOL/L (136-145)
[2017-02-12 09:18] LABS: OTHERS PATHOLOGIST COMMENT
--- NOTE | 2017-02-12 10:23 | Consultation ---
Consult Note Consult Note asked to eval for renal failure- This is a 46 year male with a history of chronic CHF, asthma and high blood pressure. He is staying at a motel nearby. He called 911 because he was short of breath. He said that he did not get his medication filled because the taxi never came. He was just a minute or 2 weeks ago at [facility] for the same thing. Pain 2 weeks prior to that he was at [facility]. He said he became short of breath tonight. Worse with exertion. No fever chills. Also has chest pain and chest pressure. EMS said he was wheezing so they gave him breathing treatment. Also gave him aspirin and nitroglycerin. He said he felt a bit better now. Similar symptom in the past. interviewed, examined- data reviewed . Assessment/Plan Renal failure , due to CHF and cardiomyopathy - atypical CP Elevated troponin CHF exacerbation , systolic and diastolic Tory , exacerbation Cardiomyopathy ( EF 20-25%) Asthma cocaine abuse Severe pulmonary HTN Anemia proteinuria Plan; Optimize cardiac status- Monitor renal parameters Avoid nephrotoxics Per cardiology FREDERIC VAZQUEZ Feb 12, 2017 10:23
[2017-02-12 11:22] LABS: CHOLESTEROL 181 MG/DL (< 200); CHOLESTEROL/HDL RATIO 2.9 (3.3-4.4); CRP QUANT < 0.4 mg/dL (0.00-0.90); FERRITIN 21 NG/ML (8-388); MAGNESIUM 1.9 MG/DL (1.8-2.4); PHOSPHORUS 4.8 MG/DL (2.5-4.9); THYROID STIMULATING HORMONE 1.128 uiU/mL (0.358-3.740)
--- NOTE | 2017-02-12 12:13 | Diagnostic Imaging Report ---
Indication: SOB Technique: One view of the chest Comparison: 02/10/2017 Findings: Heart remains enlarged. Lungs and pleural spaces are clear. No significant change Impression: No acute process
[2017-02-12 12:22] VITALS: BP 103/76
--- NOTE | 2017-02-12 12:38 | Pulmonology Progress Note ---
Assessment/Plan Problems: (1) ACS (acute coronary syndrome) (2) Asthma with exacerbation (3) Cardiomyopathy (4) Cocaine abuse Assessment/Plan improving dc today Subjective ROS Limited/Unobtainable: No Constitutional: Reports: no symptoms HEENT: Repors: no symptoms Respiratory: Reports: no symptoms Allergies: Coded Allergies: No Known Allergies (Unverified , 02/08/17) Objective Last 24 Hour Vital Signs Date Time Temp Pulse Resp B/P (MAP) Pulse Ox O2 Delivery O2 Flow Rate FiO2 02/12/17 12:33 103/76 02/12/17 12:22 97.9 82 19 103/76 Room Air 02/12/17 08:53 89 02/12/17 08:52 97.2 86 18 113/87 Room Air 02/12/17 08:44 109/68 02/12/17 08:43 89 109/69 02/12/17 08:00 97 02/12/17 04:24 94.9 89 18 109/68 97 Room Air 02/12/17 04:00 91 02/12/17 00:29 97.4 90 18 121/94 99 Room Air 02/12/17 00:00 95 02/11/17 20:55 111/73 02/11/17 20:54 93 111/73 02/11/17 20:16 97.5 93 18 111/73 98 Room Air 02/11/17 20:00 98 02/11/17 19:30 89 18 Room Air 21 02/11/17 17:24 128/77 02/11/17 16:34 98.7 88 20 128/77 100 Room Air 02/11/17 16:00 86 02/11/17 14:00 79 02/11/17 13:26 108/75 02/11/17 12:44 98.0 83 20 108/75 99 Room Air Intake and Output 02/12/17 02/13/17 19:00 07:00 Intake Total 60 ml Output Total 360 ml Balance -300 ml Intake Oral 60 ml Output Urine Total 360 ml General Appearance: WD/WN HEENT: normocephalic, atraumatic Respiratory/Chest: chest wall non-tender, lungs clear Cardiovascular: normal peripheral pulses, normal rate, no JVD Abdomen: soft, non tender, no scars Skin: no rash, no ulcers 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 normal, no motor/sensory deficits Laboratory Tests 02/12/17 07:55: White Blood Count 5.3, Red Blood Count 5.43, Hemoglobin 13.9L, Hematocrit 44.6, Mean Corpuscular Volume 82, Mean Corpuscular Hemoglobin 25.7L, Mean Corpuscular Hemoglobin Concent 31.3L, Red Cell Distribution Width 18.8H, Platelet Count 301 , Mean Platelet Volume 7.9, Neutrophils (%) (Auto) 60.1, Lymphocytes (%) (Auto) 25.8, Monocytes (%) (Auto) 11.0H, Eosinophils (%) (Auto) 2.3, Basophils (%) ( Auto) 0.8, Sodium Level 137, Potassium Level 4.0, Chloride Level 98, Carbon Dioxide Level 33H, Anion Gap 6, Blood Urea Nitrogen 35H, Creatinine 1.4H, Estimat Glomerular Filtration Rate 54.6, Glucose Level 104, Hemoglobin A1c 6.0, Calcium Level 9.5, Phosphorus Level 4.8, Magnesium Level 1.9, Ferritin 21, Gamma Glutamyl Transpeptidase 272H, Total Creatine Kinase 36, C-Reactive Protein , Quantitative < 0.4, Pro-B-Type Natriuretic Peptide 1174H, Triglycerides Level 141, Cholesterol Level 181, LDL Cholesterol 103H, HDL Cholesterol 62H, Cholesterol/HDL Ratio 2.9L, Thyroid Stimulating Hormone (TSH) 1.128 Current Medications Medications (Trade) Dose Ordered Sig/Issa Route PRN Reason Start Time Stop Time Status Last Admin Dose Admin Acetaminophen (Tylenol) 650 mg Q4H PRN ORAL Fever 02/09/17 00:30 03/11/17 00:29 Albuterol/ Ipratropium (Albuterol/ Ipratropium) 3 ml Q4H PRN HHN Shortness of Breath 02/09/17 00:30 02/14/17 00:29 Carvedilol (Coreg) 6.25 mg EVERY 12 HOURS ORAL 02/12/17 21:00 03/14/17 20:59 Dextrose (Dextrose 50%) STAT PRN IV Hypoglycemia 02/09/17 00:30 03/11/17 00:29 Digoxin (Lanoxin) 0.125 mg DAILY ORAL 02/09/17 18:00 03/11/17 17:59 02/12/17 08:53 Furosemide (Lasix) 40 mg EVERY 12 HOURS IV 02/12/17 21:00 03/11/17 05:59 Heparin Sodium (Porcine) (Heparin 5000 units/ml) 5,000 units EVERY 12 HOURS SUBQ 02/09/17 09:00 03/11/17 08:59 02/10/17 21:54 Isosorbide Dinitrate (Isordil) 10 mg QID ORAL 02/09/17 10:00 03/11/17 09:59 02/12/17 12:33 Ondansetron HCl (Zofran) 4 mg Q6H PRN IVP Nausea & Vomiting 02/09/17 00:30 03/11/17 00:29 Pantoprazole (Protonix) 40 mg DAILY ORAL 02/12/17 10:45 03/14/17 10:44 02/12/17 10:45 Polyethylene Glycol (Miralax) 17 gm DAILYPRN PRN ORAL Constipation 02/09/17 00:30 03/11/17 00:29 02/10/17 15:01 Spironolactone (Aldactone) 25 mg DAILY ORAL 02/09/17 10:00 03/11/17 09:59 02/12/17 08:44 Temazepam (Restoril) 15 mg HSPRN PRN ORAL Insomnia 02/09/17 00:30 02/16/17 00:29 02/11/17 22:43 CLARISA BUSTILLO Feb 12, 2017 12:38
[2017-02-12] MEDS ORDERED: LASIX40 MG ORAL (12:42)
[2017-02-12] MEDS ORDERED: LANOXIN125 MCG ORAL (12:42)
[2017-02-12] MEDS ORDERED: COREG6.25 MG ORAL (12:42)
[2017-02-12] MEDS ORDERED: ALDACTONE25 MG ORAL (12:42)
[2017-02-12 16:00] VITALS: BP 125/85
[2017-02-12] MEDS ORDERED: Miralax 17gm pkt ORAL PRN (16:00)
[2017-02-12] MEDS ORDERED: Albuterol/Ipratropium 3ml neb HHN PRN (16:30)
[2017-02-12 20:00] VITALS: BP 122/99
[2017-02-12] MEDS ORDERED: Carvedilol 6.25mg Tab ORAL SCH ×2 (21:00)
--- NOTE | 2017-02-12 23:30 | Cardiology Progress Note ---
Assessment/Plan Status Narrative Assessment/Plan 1. Acute on chronic systolic and diastolic congestive heart failure, increase coreg to 12.5mg bid, left ventricular ejection fraction is about 30%. 2. Severe pulmonary HTN 3. Small pericardial effusion is s/o right heart failure as well. 4. Polysubstance abuse. 5. Noncompliance with medication. Subjective Subjective Transferred to the med-surg unit. Denies chest pain or SOB. Objective Last 24 Hour Vital Signs Date Time Temp Pulse Resp B/P (MAP) Pulse Ox O2 Delivery O2 Flow Rate FiO2 02/12/17 22:16 122/99 02/12/17 22:11 99 122/99 02/12/17 20:00 97.4 99 21 122/99 100 Room Air 02/12/17 19:00 103 20 Room Air 21 02/12/17 17:25 125/85 02/12/17 16:00 97.2 97 18 125/85 96 Room Air 02/12/17 12:33 103/76 02/12/17 12:22 97.9 82 19 103/76 Room Air 02/12/17 12:00 84 02/12/17 08:53 89 02/12/17 08:52 97.2 86 18 113/87 Room Air 02/12/17 08:44 109/68 02/12/17 08:43 89 109/69 02/12/17 08:00 97 02/12/17 04:24 94.9 89 18 109/68 97 Room Air 02/12/17 04:00 91 02/12/17 00:29 97.4 90 18 121/94 99 Room Air 02/12/17 00:00 95 Intake and Output 02/12/17 02/13/17 19:00 07:00 Intake Total 860 ml Output Total 360 ml Balance 500 ml Intake Oral 860 ml Output Urine Total 360 ml # Voids 4 2D Echo: 4C DCM, LVEF 30%, Grade II LVDD, Mild MR, RVSP 76 , Mild LVH, Small Bhumika Ef Laboratory Tests Test 02/12/17 07:55 White Blood Count 5.3 K/UL (4.8-10.8) Red Blood Count 5.43 M/UL (4.70-6.10) Hemoglobin 13.9 G/DL (14.2-18.0) L Hematocrit 44.6 % (42.0-52.0) Mean Corpuscular Volume 82 FL (80-99) Mean Corpuscular Hemoglobin 25.7 PG (27.0-31.0) L Mean Corpuscular Hemoglobin Concent 31.3 G/DL (32.0-36.0) L Red Cell Distribution Width 18.8 % (11.6-14.8) H Platelet Count 301 K/UL (150-450) Mean Platelet Volume 7.9 FL (6.5-10.1) Neutrophils (%) (Auto) 60.1 % (45.0-75.0) Lymphocytes (%) (Auto) 25.8 % (20.0-45.0) Monocytes (%) (Auto) 11.0 % (1.0-10.0) H Eosinophils (%) (Auto) 2.3 % (0.0-3.0) Basophils (%) (Auto) 0.8 % (0.0-2.0) Sodium Level 137 MMOL/L (136-145) Potassium Level 4.0 MMOL/L (3.5-5.1) Chloride Level 98 MMOL/L (98-107) Carbon Dioxide Level 33 MMOL/L (21-32) H Anion Gap 6 mmol/L (5-15) Blood Urea Nitrogen 35 mg/dL (7-18) H Creatinine 1.4 MG/DL (0.55-1.30) H Estimat Glomerular Filtration Rate 54.6 mL/min (>60) Glucose Level 104 MG/DL (74-106) Hemoglobin A1c 6.0 % (4.3-6.0) Calcium Level 9.5 MG/DL (8.5-10.1) Phosphorus Level 4.8 MG/DL (2.5-4.9) Magnesium Level 1.9 MG/DL (1.8-2.4) Ferritin 21 NG/ML (8-388) Gamma Glutamyl Transpeptidase 272 U/L (5-85) H Total Creatine Kinase 36 U/L (26-308) C-Reactive Protein, Quantitative < 0.4 mg/dL (0.00-0.90) Pro-B-Type Natriuretic Peptide 1174 pg/mL (0-125) H Triglycerides Level 141 MG/DL (30-150) Cholesterol Level 181 MG/DL (< 200) LDL Cholesterol 103 mg/dL (<100) H HDL Cholesterol 62 MG/DL (40-60) H Cholesterol/HDL Ratio 2.9 (3.3-4.4) L Thyroid Stimulating Hormone (TSH) 1.128 uiU/mL (0.358-3.740) Objective HEENT: Atraumatic and normocephalic. Anicteric. Pupils are equal, round, and reactive to light and accommodation. Extraocular muscles intact. NECK: JVP elevated about 15 cm. No carotid bruits. Carotid upstrokes 2+ bilaterally. CARDIOVASCULAR: Normal S1 and S2. Tachcyardic, A 2/6 mid systolic murmur at left sternal border. PMI is at fourth intercostal space in the midclavicular line. There is presence of a summation gallop, S3 and S4 LUNGS: Diminished breath sounds in both lungs. ABDOMEN: Soft, nontender, and nondistended. No hepatosplenomegaly. Positive bowel sounds. EXTREMITIES: No evidence of edema, clubbing, or cyanosis. MARIA L BLANCA Feb 12, 2017 23:30
[2017-02-13] VITALS: BP 117/89
[2017-02-13 04:00] VITALS: BP 121/87
[2017-02-13 07:29] LABS: ALANINE AMINOTRANSFERASE 40 U/L (12-78); ALBUMIN/GLOBULIN RATIO 0.8 (1.0-2.7); ANION GAP 8 mmol/L (5-15); ASPARTATE AMINO TRANSFERASE 34 U/L (15-37); CALCIUM 9.7 MG/DL (8.5-10.1); CARBON DIOXIDE 30 MMOL/L (21-32); CHLORIDE 99 MMOL/L (98-107); CREATININE 1.2 MG/DL (0.55-1.30); GLOMERULAR FILTRATION RATE > 60 mL/min (>60); POTASSIUM 4.3 MMOL/L (3.5-5.1); SODIUM 137 MMOL/L (136-145); TOTAL PROTEIN 7.7 G/DL (6.4-8.2)
[2017-02-13 07:30] LABS: BASOPHILS % (AUTO) 0.9 % (0.0-2.0); EOSINOPHILS % (AUTO) 3.8 % (0.0-3.0); LYMPHOCYTES % (AUTO) 27.8 % (20.0-45.0); MEAN CORPUSCULAR HEMOGLOBIN 24.5 PG (27.0-31.0); MEAN CORPUSCULAR HGB CONC 29.9 G/DL (32.0-36.0); MEAN CORPUSCULAR VOLUME 82 FL (80-99); MEAN PLATELET VOLUME 7.5 FL (6.5-10.1); MONOCYTES % (AUTO) 17.8 % (1.0-10.0); NEUTROPHILS % (AUTO) 49.8 % (45.0-75.0); PLATELET COUNT 263 K/UL (150-450); RED BLOOD COUNT 5.37 M/UL (4.70-6.10); RED CELL DISTRIBUTION WIDTH 18.9 % (11.6-14.8); WHITE BLOOD COUNT 4.2 K/UL (4.8-10.8)
[2017-02-13 07:32] LABS: PHOSPHORUS 4.9 MG/DL (2.5-4.9); URIC ACID 7.6 MG/DL (2.6-7.2)
[2017-02-13 07:37] LABS: CRP QUANT < 0.4 mg/dL (0.00-0.90)
[2017-02-13 08:15] VITALS: BP 119/85
[2017-02-13] MEDS ORDERED: Spironolactone 25mg tab ORAL SCH (09:00)
[2017-02-13] MEDS: Heparin 5000 units/ml inj SUBQ SCH (09:00)
[2017-02-13] MEDS ORDERED: Carvedilol 12.5mg tab ORAL SCH (09:00)
[2017-02-13] MEDS ORDERED: Lisinopril 2.5mg tab ORAL SCH (09:00)
[2017-02-13] MEDS ORDERED: Digoxin 0.125mg tab ORAL SCH (09:00)
--- NOTE | 2017-02-13 11:06 | Nephrology Progress Note ---
Assessment/Plan Problem List: (1) Renal insufficiency (2) Cardiomyopathy (3) CHF exacerbation (4) Anemia (5) Cocaine abuse Assessment Renal failure , due to CHF and cardiomyopathy -Cr normal now atypical CP Elevated troponin CHF exacerbation , systolic and diastolic Tory , exacerbation Cardiomyopathy ( EF 20-25%) Asthma cocaine abuse Severe pulmonary HTN Anemia proteinuria Plan Plan; Optimize cardiac status- Monitor renal parameters Avoid nephrotoxics Per cardiology stable for DC from renal stand ? Psych eval ?? Objective Objective Last 24 Hour Vital Signs Date Time Temp Pulse Resp B/P (MAP) Pulse Ox O2 Delivery O2 Flow Rate FiO2 02/13/17 09:09 95 119/85 02/13/17 09:08 119/85 02/13/17 09:08 95 02/13/17 09:07 119/85 02/13/17 08:15 97.0 95 19 119/85 99 Room Air 02/13/17 04:00 99.3 96 21 121/87 99 Room Air 02/13/17 00:00 97.5 96 20 117/89 100 Room Air 02/12/17 22:16 122/99 02/12/17 22:11 99 122/99 02/12/17 20:00 97.4 99 21 122/99 100 Room Air 02/12/17 19:00 103 20 Room Air 21 02/12/17 17:25 125/85 02/12/17 16:00 97.2 97 18 125/85 96 Room Air 02/12/17 12:33 103/76 02/12/17 12:22 97.9 82 19 103/76 Room Air 02/12/17 12:00 84 Intake and Output 02/13/17 02/14/17 19:00 07:00 Intake Total 480 ml Balance 480 ml Intake Oral 480 ml Laboratory Tests 02/13/17 05:10: White Blood Count 4.2L, Red Blood Count 5.37, Hemoglobin 13.1L, Hematocrit 43.9 , Mean Corpuscular Volume 82, Mean Corpuscular Hemoglobin 24.5L, Mean Corpuscular Hemoglobin Concent 29.9L, Red Cell Distribution Width 18.9H, Platelet Count 263, Mean Platelet Volume 7.5, Neutrophils (%) (Auto) 49.8, Lymphocytes (%) (Auto) 27.8, Monocytes (%) (Auto) 17.8H, Eosinophils (%) (Auto) 3.8H, Basophils (%) (Auto) 0.9, Sodium Level 137, Potassium Level 4.3, Chloride Level 99, Carbon Dioxide Level 30, Anion Gap 8, Blood Urea Nitrogen 37H, Creatinine 1.2, Estimat Glomerular Filtration Rate > 60, Glucose Level 96, Uric Acid 7.6H, Calcium Level 9.7, Phosphorus Level 4.9, Magnesium Level 2.0, Total Bilirubin 0.5, Aspartate Amino Transf (AST/SGOT) 34, Alanine Aminotransferase ( ALT/SGPT) 40, Alkaline Phosphatase 90, C-Reactive Protein, Quantitative < 0.4, Pro-B-Type Natriuretic Peptide 1169H, Total Protein 7.7, Albumin 3.3L, Globulin 4.4, Albumin/Globulin Ratio 0.8L, Digoxin Level < 0.3L Height (Feet): 5 Height (Inches): 11.00 Weight (Pounds): 160 FREDERIC VAZQUEZ Feb 13, 2017 11:06
[2017-02-13 12:49] VITALS: BP 117/79
[2017-02-13 12:51] VITALS: BP 117/79
--- NOTE | 2017-02-13 14:45 | Cardiology Report ---
APPROVED REPORT EKG Measurement Heart [id number] Normal sinus rhythm Biatrial enlargement Left ventricular hypertrophy with repolarization abnormality Prolonged QT Abnormal ECG
--- NOTE | 2017-02-13 16:20 | Pulmonology Progress Note ---
Assessment/Plan Problems: (1) ACS (acute coronary syndrome) (2) Asthma with exacerbation (3) Cardiomyopathy (4) Cocaine abuse Assessment/Plan improving belligerent demands housing only available options is homeless [facility]p, pt doesn't have any skilled needs and is totally independent. Subjective ROS Limited/Unobtainable: No Constitutional: Reports: no symptoms HEENT: Repors: no symptoms Respiratory: Reports: no symptoms Cardiovascular: Reports: no symptoms Gastrointestinal/Abdominal: Reports: no symptoms Genitourinary: Reports: no symptoms Allergies: Coded Allergies: No Known Allergies (Unverified , 02/08/17) Objective Last 24 Hour Vital Signs Date Time Temp Pulse Resp B/P (MAP) Pulse Ox O2 Delivery O2 Flow Rate FiO2 02/13/17 12:51 117/79 02/13/17 12:49 98.0 89 18 117/79 98 Room Air 02/13/17 09:09 95 119/85 02/13/17 09:08 119/85 02/13/17 09:08 95 02/13/17 09:07 119/85 02/13/17 08:15 97.0 95 19 119/85 99 Room Air 02/13/17 04:00 99.3 96 21 121/87 99 Room Air 02/13/17 00:00 97.5 96 20 117/89 100 Room Air 02/12/17 22:16 122/99 02/12/17 22:11 99 122/99 02/12/17 20:00 97.4 99 21 122/99 100 Room Air 02/12/17 19:00 103 20 Room Air 21 02/12/17 17:25 125/85 Intake and Output 02/13/17 02/14/17 19:00 07:00 Intake Total 480 ml Balance 480 ml Intake Oral 480 ml General Appearance: WD/WN HEENT: normocephalic, atraumatic Respiratory/Chest: chest wall non-tender, lungs clear, no respiratory distress Cardiovascular: normal peripheral pulses, normal rate, regular rhythm Abdomen: normal bowel sounds, soft, non tender Genitourinary: normal external genitalia Extremities: no cyanosis Skin: no rash, no ulcers Laboratory Tests 02/13/17 05:10: White Blood Count 4.2L, Red Blood Count 5.37, Hemoglobin 13.1L, Hematocrit 43.9 , Mean Corpuscular Volume 82, Mean Corpuscular Hemoglobin 24.5L, Mean Corpuscular Hemoglobin Concent 29.9L, Red Cell Distribution Width 18.9H, Platelet Count 263, Mean Platelet Volume 7.5, Neutrophils (%) (Auto) 49.8, Lymphocytes (%) (Auto) 27.8, Monocytes (%) (Auto) 17.8H, Eosinophils (%) (Auto) 3.8H, Basophils (%) (Auto) 0.9, Sodium Level 137, Potassium Level 4.3, Chloride Level 99, Carbon Dioxide Level 30, Anion Gap 8, Blood Urea Nitrogen 37H, Creatinine 1.2, Estimat Glomerular Filtration Rate > 60, Glucose Level 96, Uric Acid 7.6H, Calcium Level 9.7, Phosphorus Level 4.9, Magnesium Level 2.0, Total Bilirubin 0.5, Aspartate Amino Transf (AST/SGOT) 34, Alanine Aminotransferase ( ALT/SGPT) 40, Alkaline Phosphatase 90, C-Reactive Protein, Quantitative < 0.4, Pro-B-Type Natriuretic Peptide 1169H, Total Protein 7.7, Albumin 3.3L, Globulin 4.4, Albumin/Globulin Ratio 0.8L, Digoxin Level < 0.3L CLARISA BUSTILLO Feb 13, 2017 16:20
--- NOTE | 2017-02-15 09:26 | Discharge Summary ---
Discharge Summary Hospital Course Date of Admission Feb 08, 2017 at 23:45 Date of Discharge Feb 13, 2017 at 13:45 Admitting Diagnosis CONGESTIVE HEART FAILURE , ACUTE CORONARY SYNDROME EDWIGE Yost is a 46 year old male who was admitted on Feb 08, 2017 at 23:45 for Congestive Heart Failure,Acute Coronary Syndrome Hospital Course [id number] Discharge Discharge Disposition Patient was discharged to Home (01) Discharge Diagnoses: Cindy Montero NP Feb 15, 2017 09:26
--- NOTE | 2017-02-15 18:00 | Discharge Summary 2 SIG ---
DATE OF ADMISSION: 02/08/2017 DATE OF DISCHARGE: 02/13/2017 CONSULTANTS: 1. Jose Castano M.D. 2. Abdelrahman Hatch M.D. BRIEF HOSPITAL COURSE: The patient is a 46-year-old male with history of chronic CHF, asthma, hypertension, who presented to ED complaining of shortness of breath. He was taken by EMS and was given breathing treatment as well as aspirin and nitroglycerin. He stated that he did not get his medications and became short of breath. He also admitted to using cocaine, which was present in his urine. On evaluation at ED, troponin was 0.141, BNP was 14,853. EKG showed sinus tachycardia and chest x-ray with cardiomegaly and vascular congestion. He was admitted for acute coronary syndrome and underwent cardiac evaluation. He had decompensated congestive heart failure. A 12-lead EKG showed presence of LVH with left atrial enlargement and repolarization associated with LVH. His QT interval was also elevated. He had right atrial enlargement. He has acute on chronic systolic and diastolic congestive heart failure and was given digoxin, Aldactone, Coreg, and lisinopril. He was given diuretics 40 mg IV Lasix q.12 h. He underwent an echocardiogram that showed ejection fraction of 20% to 25% with left ventricular hypokinesis and severe pulmonary hypertension. Coreg was increased to 12.5 mg b.i.d. He was counseled against cocaine use. He had elevated creatinine and had acute renal failure, which is due to CHF and cardiomyopathy. Creatinine eventually normalized. Family Independence Case Manager was called in. The patient is homeless and had been showing violent behavior, yelling, and not willing to work with social insurance analyst towards housing options. He was cleared for discharge. He was independent with ADLs with steady ambulation. No DME is required. He was eventually discharged. FINAL DIAGNOSES: 1. Acute on chronic systolic and diastolic heart failure. 2. Severe pulmonary hypertension. 3. Acute coronary syndrome. 4. Asthma with acute exacerbation. 5. Cardiomyopathy. 6. Cocaine abuse. 7. Noncompliance with medication. 8. Small pericardial effusion secondary to right heart failure. 9. Acute renal failure due to congestive heart failure and cardiomyopathy. 10. Atypical chest pain. 11. Proteinuria. 12. Anemia. DISCHARGE MEDICATIONS: Refer to medication list. FOLLOW-UP: Advised to follow-up as outpatient. Rico Townsend M.D. I have been assigned to dictate discharge summary on this account and I was not involved in the patient's management. Cindy Montero N.P. DR: Teressa JOB#: [id number] CC: GLORIA
--- NOTE | 2017-02-15 23:11 | Diagnostic Imaging Report ---
APPROVED REPORT CPT Code: 26610 Present Symptoms Lower Extremity Pain: Bilateral BILATERAL: Imaging reveals a patent deep venous system bilaterally. There is no evidence of thrombus within the femoral, popliteal or tibial segments. The greater saphenous veins are also within normal limits. Doppler indicates normal spontaneous flow within these segments.
--- NOTE | 2017-02-21 17:28 | Cardiology Report ---
APPROVED REPORT EKG Measurement Heart [id number] Normal sinus rhythm Biatrial enlargement Rightward axis Nonspecific ST and T wave abnormality Prolonged QT Abnormal ECG
--- NOTE | 2017-02-27 14:37 | Cardiology Report ---
APPROVED REPORT EKG Measurement Heart [id number] ME [id number] Sinus tachycardia Biatrial enlargement Septal infarct, age undetermined Abnormal ECG
== END 2017-02-13 13:45 | disposition home or self-care (01) | DRG 194 ==
LOC: EDBD 21:34 → EMR 23:30 → 2E 23:45 → EDBEDREQ 02-09 06:06 → 2E 02-10 10:28 → 4E 02-12 14:35
DX: I11.0 Hypertensive heart disease with heart failure (principal); N17.9 Acute kidney failure, unspecified; I27.20 Pulmonary hypertension, unspecified; J45.901 Unspecified asthma with (acute) exacerbation; E83.42 Hypomagnesemia; I24.9 Acute ischemic heart disease, unspecified; I50.43 Acute on chronic combined systolic (congestive) and diastolic (congestive) heart failure; I42.9 Cardiomyopathy, unspecified; D64.9 Anemia, unspecified; F14.10 Cocaine abuse, uncomplicated; R80.9 Proteinuria, unspecified; Z91.14 Patient's other noncompliance with medication regimen; Z59.0 Homelessness
CPT/HCPCS: 36415; 71010; 80048; 80053; 80061; 80069; 80162; 80307; 81003; 82550; 82553; 82607; 82728; 82746; 82977; 83036; 83540; 83550; 83615; 83735; 83880; 84100; 84443; 84484; 84550; 85007; 85025; 85044; 85060; 85610; 85651; 85730; 86140; 87081; 93005; 93306; 93970; 94640; 94664